=== PATIENT | female | born 1995 | race Two or more races ===

== ENCOUNTER 2018-08-19 00:14 | Emergency (ER) | payer MEDICAID ==
[~2018-08-19] VITALS: Ht 157.5 cm; Wt 94.8 kg
[2018-08-19 00:27] VITALS: Ht 157.5 cm; Wt 94.8 kg
[2018-08-19 03:38] VITALS: BP 129/82
== END 2018-08-19 03:39 | disposition home or self-care (01) ==
LOC: ED 00:14
DX: G44.209 Tension-type headache, unspecified, not intractable (principal); H81.10 Benign paroxysmal vertigo, unspecified ear
CPT/HCPCS: 82962; J1885; J8597; Q0162

== ENCOUNTER 2018-08-30 11:18 | Emergency (ER) | payer MEDICAID ==
[~2018-08-30] VITALS: Ht 157.5 cm; Wt 95.7 kg
[2018-08-30 11:44] VITALS: Ht 157.5 cm; Wt 95.7 kg
[2018-08-30 14:41] VITALS: BP 151/88
== END 2018-08-30 14:36 | disposition home or self-care (01) ==
LOC: ED 11:18
DX: G51.0 Bell's palsy (principal); R05 Cough; H65.92 Unspecified nonsuppurative otitis media, left ear; Z87.19 Personal history of other diseases of the digestive system

== ENCOUNTER 2019-07-29 11:29 | Emergency (ER) | payer MEDICAID ==
[~2019-07-29] VITALS: Ht 157.5 cm; Wt 82.6 kg
[2019-07-29 13:24] VITALS: Ht 157.5 cm; Wt 82.6 kg
[2019-07-29 15:23] VITALS: BP 105/63
== END 2019-07-29 15:23 | disposition home or self-care (01) ==
LOC: ED 11:29
DX: B34.9 Viral infection, unspecified (principal); F17.210 Nicotine dependence, cigarettes, uncomplicated; Z71.6 Tobacco abuse counseling
CPT/HCPCS: 87491; 87591; 99406; J0696

== ENCOUNTER 2019-08-22 11:49 | Emergency (ER) | payer MEDICAID ==
[~2019-08-22] VITALS: Ht 157.5 cm; Wt 83.0 kg
[2019-08-22 12:00] VITALS: Ht 157.5 cm; Wt 83.0 kg
[2019-08-22 13:45] VITALS: BP 118/70
== END 2019-08-22 13:45 | disposition home or self-care (01) ==
LOC: ED 11:49
DX: F32.9 Major depressive disorder, single episode, unspecified (principal); F41.9 Anxiety disorder, unspecified; G47.00 Insomnia, unspecified; R42 Dizziness and giddiness; R06.02 Shortness of breath; Z87.19 Personal history of other diseases of the digestive system